=== PATIENT | male | born 1960 | race African-American/Black ===

== ENCOUNTER 2023-09-18 14:52 | Emergency (ER) | payer MEDICARE, MEDICAID, SELFPAY ==
[2023-09-18 15:20] VITALS: BP 89/46; PULSE 80; RESP 18; TEMP 36.8; O2SAT 100
[2023-09-18 15:52] VITALS: BP 89/46; PULSE 80; RESP 18; TEMP 36.8; O2SAT 100
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
== END 2023-09-18 16:21 | disposition short-term general hospital (02) ==
PROVIDERS: Emergency Provider Nurse Practitioner Family
DX: L97.929 Non-pressure chronic ulcer of unspecified part of left lower leg with unspecified severity (principal); L97.919 Non-pressure chronic ulcer of unspecified part of right lower leg with unspecified severity; I25.10 Atherosclerotic heart disease of native coronary artery without angina pectoris; I13.2 Hypertensive heart and chronic kidney disease with heart failure and with stage 5 chronic kidney disease, or end stage renal disease; E11.22 Type 2 diabetes mellitus with diabetic chronic kidney disease; N18.6 End stage renal disease; I50.9 Heart failure, unspecified; Z99.2 Dependence on renal dialysis; I89.0 Lymphedema, not elsewhere classified; I25.2 Old myocardial infarction; Z95.0 Presence of cardiac pacemaker
CPT/HCPCS: 99212; G0463